=== PATIENT | male | born 1960 ===

== ENCOUNTER 2018-04-16 07:08 | Inpatient (IN) | payer OTHER ==
[~2018-04-16] VITALS: Ht 182.9 cm; Wt 96.8 kg
[2018-04-16] VITALS (8 sets, daily range): BP systolic 95–120; BP diastolic 55–76
[2018-04-16] MEDS ORDERED: METFORMIN HCL1000 MG PO (08:20)
[2018-04-16] MEDS ORDERED: ZESTRIL10 M1 PO (08:21)
[2018-04-16] MEDS ORDERED: HYDROCHLOROT25 MG PO (08:21)
[2018-04-16] MEDS ORDERED: CLOTRIMAZOLE13 EX (08:23)
[2018-04-16] MEDS ORDERED: GLIPIZIDE ER10 M1 PO (08:23)
[2018-04-16] MEDS ORDERED: NAPROXEN250 MG PO (08:24)
[2018-04-16] MEDS ORDERED: LORATADINE10 M1 PO (08:25)
--- NOTE | 2018-04-16 14:15 | NUR ---
PT ARRIVED TO FLOOR VIA HOSPITAL BED IN STABLE CONDITION ACCOMPANIED BY OR STAFF MEMBER AND X2 GUARDS;PT DROWSY, INTRODUCED SELF TO PT AND POC DISCUSSED;PT DENIES ANY CURRENT PAIN OR NEEDS AND IS ENCOURAGED TO CALL FOR ASSISTANCE IF NEEDED;PT IS POST OP LEFT HIP ARTHROPLASTY 04/16/18,DRESSING APPEARS CDI;WT AND VS OBTAINED BY AMY RHODES;ENCOURAGED PT TO CALL FOR ASSISTANCE IF NEEDED;FALL PRECAUTIONS IN PLACE WITH BED IN THE LOWEST POSITION AND CALL LIGHT IN REACH;WILL CONTINUE TO MONITOR
--- NOTE | 2018-04-16 15:00 | NUR ---
PT RESTING IN SEMI FOWLERS POSITION, ALERT AND ORIENTED X3 REQUESTING ICE CHIPS;ASSESSMENT COMPLETED;PT DENIES ANY CURRENT PAIN AT THIS TIME,PAIN SCALE AND REPORTING EDUCATED;RESPIRATIONS EVEN AND UNLABORED ON O2 @ 2L VIA NC, CLEAR LUNG SOUNDS NOTED;PT INSTRUCTED ON I.S. AND DEMONSTRATED USE, ENCOURAGED TO USE 10X PER HOUR;ABDOMEN DISTENDED/SOFT ON PALPATION AND HYPOACTIVE IN ALL 4 QUADRANTS, UNKNOWN LAST BM;LEFT TOTAL HIP ARTHROPLASTY, DRESSING CDI WITH WEDGE IN PLACE;STRONG PEDAL PULSES;PT IS ABLE TO MOVE FEET AND TOES,CAP REFILL LESS THAN 3 SECONDS;SCD IN PLACE;#20G TO RIGHT FOREARM INFUSING LR @ 100ML/HR,SITE APPEARS HEALTHY;ACCUCHECK 183, NO COVERAGE NEEDED AT THIS TIME;ICE CHIPS PROVIDED PER REQUEST;PT DENIES ANY ADDITIONAL NEEDS AND IS ENCOURAGED TO CALL FOR ASSISTANCE IF NEEDED;CALL LIGHT IN REACH;WILL CONTINUE TO MONITOR
--- NOTE | 2018-04-16 16:11 | NUR ---
PHYSICAL THERAPY AT BEDSIDE WORKING WITH PT.
--- NOTE | 2018-04-16 16:39 | NUR ---
Attempted evaluation. Patient still lethargic with some postop hypotension- will hold off until AM
--- NOTE | 2018-04-16 22:39 | NUR ---
PT MEDICATED ORDERS PROVIDE AND ASSESSED, DRESSING TO LEFT HIP CDI W/WEDGE IN PLACE AND SCD TO RLE. NO S/O DISTRES NOTED, PT REPORTS PAIN 6/10/MEDICATED ORDERS ALLOW. GUARDS AT BEDSIDE, WILL CONTIKNUE TO MONITOR.
[2018-04-17 00:46] VITALS: BP 116/70
--- NOTE | 2018-04-17 00:50 | NUR ---
PT DENIES ANY PAIN AT THIS TIME, REPORTS JUST FEELING SORE, BUT PAIN ON SCALE 0/10 REPORTED. GUARDS X2 AT BEDSIDE. DRESSING TO LEFT HIP CDI, DENIES ANY OTHER NEEDS AT THIS TIME. CALL LIGHT AT BEDSIDE.
--- NOTE | 2018-04-17 03:27 | NUR ---
PT MEDICATED ORDERS PROVIDE. DENIES ANY OTHER NEEDS AT THIS TIME. GUARDS X2 AT BEDSIDE.
[2018-04-17 05:12] VITALS: BP 119/64
[2018-04-17 05:51] LABS: HEMATOCRIT 35.8 % (39.0-50.0); HEMOGLOBIN 11.8 g/dl (14.0-18.0)
--- NOTE | 2018-04-17 07:00 | NUR ---
REPORT RECEIVED FROM HELDER PEOPLES;PT APPEARS TO BE RESTING IN SEMI FOWLERS POSITION, ALERT AND ORIENTED X3;INTRODUCED SELF TO PT AND POC DISCUSSED;PT DENIES ANY CURRENT PAIN OR NEEDS;ENCOURAGED TO CALL FOR ASSISTANCE IF NEEDED;FALL PRECAUTIONS IN PLACE WITH BED IN THE LOWEST POSITION AND CALL LIGHT IN REACH;WILL CONTINUE TO MONITOR
--- NOTE | 2018-04-17 08:35 | NUR ---
PHYSICAL THERAPY AT BEDSIDE WORKING WITH PT.
--- NOTE | 2018-04-17 09:50 | NUR ---
PT RESTING IN BED WITH X2 GUARDS AT BEDSIDE;VS OBTAINED AND ASSESSMENT COMPLETED, CURRENT TEMP 99.2. AC LOWERED AND BLANKETS REMOVED;PT DENIES ANY CURRENT PAIN OR DISCOMFORTS,PAIN SCALE AND REPORTING;PT IS POST OP LEFT TOTAL HIP 04/16/18;RESPIRATIONS EVEN AND UNLABORED ON RA,CLEAR LUNG SOUNDS;I.S. AT BEDSIDE AND PT DEMONSTRATED USE 10X PER HOUR;ABDOMEN DISTENDED/SOFT ON PALPATION AND ACTIVE IN ALL 4 QUADRANTS;LEFT HIP DRESSING REMAINS CDI,WEDGE PILLOW IN PLACE;STRONG PEDAL PULSES WITH CAP REFILL LESS THAN 3 SECONDS;SCD'S IN PLACE;#20G TO RIGHT FOREARM FLUSHED AND PATENT,DRESSING CHANGED AT THIS TIME;100CC OF CLEAR/YELLOW URINE EMPTIED FROM URINAL;PT DENIES ANY ADDITIONAL NEEDS AND IS ENCOURAGED TO CALL FOR ASSISTANCE IF NEEDED;FALL PRECAUTIONS IN PLACE WITH CALL LIGHT IN REACH;WILL CONTINUE TO MONITOR
[2018-04-17 09:52] VITALS: BP 112/61
[2018-04-17 11:25] VITALS: BP 113/69
--- NOTE | 2018-04-17 11:50 | NUR ---
PT RESTING IN BED WITH X2 GUARDS AT BEDSIDE;RESPIRATIONS REMAIN EVEN AND UNLABORED ON RA;PT DENIES ANY CURRENT PAIN OR NEEDS;IV SITE TO RIGHT FOREARM PATENT;ACCUCHECK 183, PT COVERED WITH SLIDING SCALE NOVOLOG PER ORDER;ASSESSMENT REMAINS UNCHANGED AT THIS TIME AND IS ENCOURAGED TO CALL FOR ASSISTANCE IF NEEDED;CALL LIGHT IN REACH;WILL CONTINUE TO MONITOR
--- NOTE | 2018-04-17 12:55 | NUR ---
AT BEDSIDE DISCUSSING POC. POSSIBLE D/C 04/18/18.
--- NOTE | 2018-04-17 15:28 | NUR ---
Therapy with focus to gait training and ther. act. Patient was seated in bed upon arrival to room. patient had adductor wedge placed between legs. Sit to stand (Mod A) with VC to extend LLE out, patient to not lean over 90 deg. at hip region. patient ambulated (Min A) x 15 feet w/ walker step to gait pattern. Stand to sit (MIN A) VC for correct hand placement as he descends to seated position, VC for patient to exent LLE to keep hip crossing 90 Deg. Educated patient on precautions of hip , pt was with no questions or concerns. bed mobilty had patient scoot ant./posterior (Mod A). Hip adductor wedge place between pt. legs, call light and tray table place by patient side.
--- NOTE | 2018-04-17 16:00 | NUR ---
PT RESTING IN SEMI FOWLERS POSITION WITH X2 GUARDS AT BEDSIDE;RESPIRATIONS EVEN AND UNLABORED ON RA;PT DENIES ANY CURRENT PAIN OR NEEDS;IV SITE REMAINS PATENT TO RIGHT FOREARM;ASSESSMENT REMAINS UNCHANGED AT THIS TIME;ENCOURAGED PT TO CALL FOR ASSISTANCE IF NEEDED;CALL LIGHT IN REACH;WILL CONTINUE TO MONITOR
[2018-04-17 19:00] VITALS: BP 134/81
--- NOTE | 2018-04-17 19:10 | NUR ---
PT IS IN HIGH FOWLERS POSITION IN BED W/GUARDS X2 AT BEDSIDE. SHACKLED AT RIGHT ANKLE TO BED. PT DENIES REPORTS MILD PAIN/REFUSES PAIN MEDICATION NEED AT THIS TIME. URINAL AT BEDSIDE EMPTIED OF 300CC OF YELLOW URINE. DRESSING TO LEFT HIP CDI, WEDGE IN PLACE. PT DENIES ANY NEEDS AT THIS TIME. CALL LIGHT AT BEDSIDE AND PT ENCOURAGED TO CALL IF ANY NEEDS ARISE.
--- NOTE | 2018-04-17 22:19 | NUR ---
PT MEDICATED ORDERS PROVIDE AND ASSESSED. PT MEDICATED FOR PAIN 09/15. GUARDS X2 AT BEDSIDE. NO S/O DISTRESS AT THIS TIME, LUNG SOUNDS ARE CLEAR AND PT REPORTS USING IS. DRESSING TO LEFT HIP CDI. CALL LIGHT AT BEDSIDE.
[2018-04-18 00:30] VITALS: BP 127/78
[2018-04-18 04:45] LABS: HEMATOCRIT 37.8 % (39.0-50.0); HEMOGLOBIN 12.2 g/dl (14.0-18.0); IMMATURE GRANULOCYTES 0.5 % (0.0-5.0); MEAN CELL VOLUME 90.4 fL CALC (80.0-100.0); MEAN CORPUSCULAR HGB 29.2 pG CALC (26.0-32.0); MEAN CORPUSCULAR HGB CONC 32.3 g/L CALC (32.0-36.0); NEUT# 8.05 thou/uL (1.82-7.42); RED BLOOD COUNT 4.18 mill/uL (4.70-6.10); RED CELL DISTRI WIDTH 13.2 % (11.5-15.5)
--- NOTE | 2018-04-18 05:00 | NUR ---
PT IS AWAKE, NO S/O DISTRESS, COFFEE PROVIDED.
[2018-04-18 05:18] LABS: ALBUMIN 3.8 g/dL (3.2-5.0); ALKALINE PHOSPHATASE 82 u/l (38-126); AMYLASE 35 u/l (30-110); ANION GAP 14 (6-22 (CALC)); BILIRUBIN, TOTAL 0.9 mg/dL (0.0-1.4); BUN 12 mg/dL (9-20); BUN/CREATININE RATIO 17 (12-20 (CALC)); CARBON DIOXIDE 23 mmol/l (22-30); CHLORIDE 104 mmol/l (95-108); CREATININE 0.7 mg/dL (0.7-1.3); GFR > 60 ML/MIN (>=60 (CALC)); GFR FOR AFR.AMER. > 60 ML/MIN (>=60 (CALC)); LIPASE 47 u/l (23-300); MAGNESIUM 1.7 mg/dL (1.6-2.3); POTASSIUM 3.5 mmol/l (3.5-5.1); SGOT/AST 38 u/l (17-59); SODIUM 138 mmol/l (137-146); TOTAL PROTEIN 6.8 g/dL (6.3-8.2)
[2018-04-18 05:37] VITALS: BP 151/95
--- NOTE | 2018-04-18 05:40 | NUR ---
PT ASSISTED TO RESTROOM AND BACK TO BED, TOLERATED WELL, PT C/O STOMACH HURTING AND IS ATTEMPTING TO HAVE A BM. PT AMBULATED WELL. PT WEIGHED IN BED, SAME POST-OP DAY 1.
--- NOTE | 2018-04-18 06:07 | NUR ---
pt reports total emesis 2x, denies any stool output and abd cramping 5/10 coming and going.
--- NOTE | 2018-04-18 07:00 | NUR ---
REPORT RECEIVED FROM HELDER PEOPLES;PT APPEARS TO BE SLEEPING IN SEMI FOWLERS POSITION WITH X2 GUARDS AT BEDSIDE;RESPIRATIONS EVEN AND UNLABORED ON RA;NO S/S OF DISTRESS NOTED;FALL PRECAUTIONS IN PLACE WITH CALL LIGHT IN REACH;WILL CONTINUE TO MONITOR
--- NOTE | 2018-04-18 08:49 | NUR ---
PT AMBULATING THE HALLWAYS WITH PHYSICAL THERAPY.
--- NOTE | 2018-04-18 09:01 | NUR ---
Pt seen this am for treatment. He was resting in bed, supine and sitting ex performed, A/AAROM x 20 reps including quad/gluteal sets, hip IR/ER with legs extended, hip abd and LAQ, ankle DF. Pt moved supine to sit with min assist of LLE and sit to supine with mod assist of LLE. Pt ambulated with standard walker x 80' with CGA assist and verbal cues for proper gait pattern. Pt left resting in supine, positioned correctly with SCD in place on RLE. Guards present.
--- NOTE | 2018-04-18 09:10 | NUR ---
Addendum; Hip precautions reviewed.
[2018-04-18 09:37] VITALS: BP 169/79
--- NOTE | 2018-04-18 09:40 | NUR ---
PT RESTING IN SEMI FOWLERS POSITION WITH X2 GUARDS AT BEDSIDE AND ONE LEG SHACKLED TO THE BED;VS OBTAINED AND ASSESSMENT COMPLETED;PT DENIES ANY CURRENT PAIN,PAIN SCALE AND REPORTING EDUCATED;PT IS POST OP DAY #2 LEFT TOTAL HIP ARTHROPLASTY;RESPIRATIONS EVEN AND UNLABORED ON RA,CLEAR LUNG SOUNDS;I.S. USE ENCOURAGED AND PT VERBALIZES UNDERSTANDING;ABDOMEN DISTENDED/SOFT AND ACTIVE IN ALL 4 QUADRANTS;LEFT HIP DRESSING CDI;STRONG PEDAL PULSES;CAP REFILL LESS THAN 3 SECONDS;#20G TO RIGHT FOREARM FLUSHED AND PATENT,SITE APPEARS HEALTHY;PT AMBULATED WITH 1 PERSON ASSIST,WALKER AND STEADY GAIT TO RESTROOM IN ATTEMPTS FOR A BM;PT DENIES ANY ADDITIONAL NEEDS AT THIS TIME;ENCOURAGED TO CALL FOR ASSISTANCE IF NEEDED;FALL PRECAUTIONS IN PLACE WITH CALL LIGHT IN REACH;WILL CONTINUE TO MONITOR
--- NOTE | 2018-04-18 11:55 | NUR ---
PT RESTING IN SEMI FOWLERS POSITION WITH X2 GUARDS AT BEDSIDE;PT DENIES ANY CURRENT PAIN OR DISCOMFORTS;RESPIRATIONS EVEN AND UNLABORED ON RA;IV SITE TO RIGHT FOREARM REMAINS PATENT;ASSESSMENT REMAINS UNCHANGED AT THIS TIME;SAFETY PRECAUTIONS REINFORCED;CALL LIGHT IN REACH;WILL CONTINUE TO MONITOR
--- NOTE | 2018-04-18 12:18 | NUR ---
AT BEDSIDE DISCUSSING POC INCLUDING DISCHARGE, PT VERBALIZES UNDERSTANDING.
[2018-04-18 12:28] VITALS: BP 147/89
--- NOTE | 2018-04-18 13:11 | NUR ---
DRESSING TO LEFT HIP REMOVED PER ORDER,PT TOLERATED WELL.DEMABOND IN PLACE AND WELL APPROX.PT DENIES ANY ADDITIONAL NEEDS;WILL CONTINUE TO MONITOR
--- NOTE | 2018-04-18 14:14 | NUR ---
Treatment this pm as noted in 9 am note. Corrections in gait pattern required. Pt was able to ambulate 80' and get LLE on to bed easier. Pt left in bed positioned correctly with guards present and call baird tray in place.
--- NOTE | 2018-04-18 15:20 | NUR ---
PT RESTING IN SEMI FOWLERS POSITION WITH GUARDS AT BEDSIDE;RESPIRATIONS EVEN AND UNLABORED ON RA;PT DENIES ANY CURRENT PAIN OR NEEDS;AWAITING DISCHARGE ORDERS AT THIS TIME;CALL LIGHT IN REACH;WILL CONTINUE TO MONITOR
[2018-04-18 16:18] VITALS: BP 138/91
--- NOTE | 2018-04-18 16:46 | NUR ---
ALL DISCHARGE ORDERS PROVIDED AT THIS TIME;RX FOR PERCOCET AND ASPIRIN GIVEN TO GUARDS TO RETURN TO [facility] FACILITY;PT DENIES ANY QUESTIONS OR NEEDS;IV SITE REMOVED WITH CATHETER INTACT;WHEELCHAIR TO BE PROVIDED FOR DISCHARGE.
--- NOTE | 2018-04-18 17:10 | NUR ---
Discharge instructions given. Patient verbalizes understanding of same. Discharged in stable condition via Wheelchair to *Other with *Other. All belongings sent with pt. Pt transported to [facility] via wheelchair in stable condition accompanied by two guards.
== END 2018-04-18 17:10 | disposition designated cancer center or children's hospital (05) | DRG 470 ==
LOC: MS2 07:08
PROVIDERS: ADMIT Orthopaedic Surgery; ATTEND Internal Medicine Nephrology
PROC: 0SRB04A Replacement of Left Hip Joint with Ceramic on Polyethylene Synthetic Substitute, Uncemented, Open Approach (ICD-10-PCS; principal; 2018-04-16)
DX: M16.12 Unilateral primary osteoarthritis, left hip (principal); M25.752 Osteophyte, left hip; E11.9 Type 2 diabetes mellitus without complications; I10 Essential (primary) hypertension; F41.9 Anxiety disorder, unspecified; Z79.84 Long term (current) use of oral hypoglycemic drugs; Z87.891 Personal history of nicotine dependence
CPT/HCPCS: J0131; J2710